=== PATIENT | male | born 1995 | race Caucasian/White ===

== ENCOUNTER 2018-02-15 11:57 | Emergency (ER) | payer BC ==
[2018-02-15] MEDS ORDERED: Ketorolac INJ* 30 MG/ML 1 ML VIAL IV PUSH ONE (12:08)
[2018-02-15] MEDS ORDERED: NS 0.9% 1000 ML* 1,000 ML IV ONE ×2 (12:08→13:46)
[2018-02-15 12:21] LABS: ABS Basophils 0 10^3/ul (0-0.2); ABS Eosinophils 0.1 10^3/ul (0-0.6); ABS Lymphocytes 1.7 10^3/ul (1.0-4.8); ABS Monocytes 1.2 10^3/ul (0-0.8); ABS Nucleated RBC 0 10^3/ul; Hematocrit 45 % (42-52); Hemoglobin 15.6 g/dl (14.0-18.0); Lymphocyte % 12.3 % (25-47); Mean Corpuscular HGB Conc 35 g/dl (31-36); Mean Corpuscular Hemoglobin 31 pg (27-31); Mean Corpuscular Volume 88 fL (80-94); Mean Platelet Volume 8.2 um3 (7.4-10.4); Nucleated Red Blood Cells % 0.1; Platelet Count 197 10^3/ul (150-450); Red Blood Count 5.09 10^6/ul (4.00-5.40); Red Cell Distribution Width 14 % (10.5-15)
[2018-02-15 12:45] LABS: Urine Appearance Clear; Urine Blood 3+ (Negative); Urine Color Colorless; Urine Ketones Negative (Negative); Urine Protein Negative (Negative); Urine Specific Gravity 1.002 (1.010-1.030); Urine Urobilinogen Negative (Negative)
--- NOTE | 2018-02-15 13:07 | RAD ---
CLINICAL HISTORY: L flank pain, hx of stones COMPARISON: None TECHNIQUE: Multiple contiguous axial CT scans were obtained of the abdomen and pelvis, without intravenous contrast enhancement. Coronal and sagittal multiplanar reformations are submitted for review. Oral contrast was not administered. FINDINGS: The study is limited by the lack of intravenous contrast. This limits evaluation of the solid organs and vasculature. LUNG BASES: The lung bases are clear. LIVER: The liver is normal in shape, size, contour, and attenuation. BILE DUCTS: There is no intrahepatic or extrahepatic biliary dilatation. GALLBLADDER: The gallbladder is normal, without pericholecystic inflammatory change. PANCREAS: The pancreas is normal, without mass or ductal dilatation. SPLEEN: Normal in size and appearance. UPPER GI TRACT: Evaluation of the gastrointestinal tract is limited by incomplete gastric distention. The upper GI tract is unremarkable. SMALL BOWEL AND MESENTERY: The small bowel is normal in contour, course, and caliber. There is no obstruction or dilatation. COLON: The colon is normal in contour, course, caliber. There is no pericolonic inflammatory change. ADRENALS: Normal bilaterally. KIDNEYS: There is a 0.7 cm calculus of the left UVJ. There is moderate pelviectasis and hydroureter. BLADDER: As noted above, there is a left UVJ calculus. PELVIC ORGANS: The prostate gland is normal. The seminal vesicles are symmetric. AORTA: The aorta is normal. IVC: Unremarkable LYMPH NODES: There is no lymphadenopathy by size criteria. ABDOMINAL WALL: There is no evidence for abdominal wall hernia. BONES AND SOFT TISSUES: Unremarkable OTHER: None IMPRESSION: 0.7 CM LEFT UVJ STONE WITH MODERATE LEFT-SIDED HYDRONEPHROSIS
[2018-02-15] MEDS ORDERED: Morphine VIAL* 4 MG/ML VIAL (1 ml vial) IV ONE (13:46)
[2018-02-15] MEDS ORDERED: Tamsulosin CAP* 0.4 MG PO ONE (13:49)
--- NOTE | 2018-02-15 15:00 | RAD ---
INDICATION: Left ureteral calculus. COMPARISON: Comparison is made with the prior CT of the abdomen and pelvis from February 15, 2018. TECHNIQUE: Frontal supine films of the abdomen were obtained. FINDINGS: The small bowel and colon appear nondistended. No significant abnormal calcifications are seen. The previously noted left ureterovesical junction calculus is not visualized. IMPRESSION: THE PREVIOUSLY NOTED LEFT URETERAL CALCULUS IS NOT VISUALIZED.
[2018-02-15 16:23] VITALS: BP 131/83
--- NOTE | 2018-02-15 17:28 | ED ---
Esme Morrissey Tenzin, scribed for Marlon Serrato MD on 02/15/18 at 1221 . GI/ HPI - HPI Summary HPI Summary: Pt is a 22 years old male with the hx of kidney stones presenting to the ED complaining of left flank pain since 0400 this morning. Per triage, pt rates the pain at 7/10 in severity. Pt reports that the pain woke him up today. Per triage, pt rates the pain at 7/10 and describes it as sharp and stabbing. Pt denies fever, N/V/D. Pt also notes that he had 2 similar episodes in the past from kidney stone. Pt reports that he is on meds for ADHD. He occasionally smokes and drinks. He is a student at [employer]. - History of Current Complaint Chief Complaint: EDFlankPain Time Seen by Provider: 02/15/18 12:07 Stated Complaint: FLANK PAIN Hx Obtained From: Patient Onset/Duration: Started Hours Ago - 0400 this morning. Current Severity: Moderate Pain Intensity: 7 Location of Pain: Flank Pain Characteristics: Sharp, Other: - Stabbing Associated Signs and Symptoms: Negative: Nausea, Vomiting, Diarrhea Aggravating Factor(s): Nothing Alleviating Factor(s): Nothing - Allergy/Home Medications Allergies/Adverse Reactions: Allergies Allergy/AdvReac Type Severity Reaction Status Date / Time Cephalosporins Allergy Rash Verified 02/15/18 12:01 Home Medications: Home Medications Amphetamine MIXED SALT TAB* [Adderall TAB*] 20 mg PO DAILY 02/15/18 [History Confirmed 02/15/18] PMH/Surg Hx/FS Hx/Imm Hx Endocrine/Hematology History: Denies: Hx Diabetes Cardiovascular History: Denies: Hx Coronary Artery Disease Infectious Disease History: No Infectious Disease History: Denies: Traveled Outside the [place] in Last 30 Days - Family History Known Family History: Negative: Cardiac Disease, Diabetes - Social History Alcohol Use: Occasionally Substance Use Type: Reports: None Smoking Status (MU): Unknown if Ever Smoked Review of Systems Negative: Fever Negative: Vomiting, Diarrhea, Nausea Positive: flank pain All Other Systems Reviewed And Are Negative: Yes Physical Exam - Summary Physical Exam Summary: Appearance: Well appearing, no pain distress Skin: warm, dry, reflects adequate perfusion Head/face: normal Eyes: EOMI, ESTUARDO ENT: normal Neck: supple, non-tender Respiratory: CTA, breath sounds present Cardiovascular: RRR, pulses symmetrical Abdomen: non-tender, soft Bowel Sounds: present Musculoskeletal: normal, strength/ROM intact, no CVA tenderness. Neuro: normal, sensory motor intact, A&Ox3 Triage Information Reviewed: Yes Vital Signs On Initial Exam: Initial Vitals Temp Pulse Resp BP Pulse Ox 98.5 F 67 18 145/96 100 02/15/18 11:59 02/15/18 11:59 02/15/18 11:59 02/15/18 11:59 02/15/18 11:59 Vital Signs Reviewed: Yes Diagnostics - Vital Signs Vital Signs Temp Pulse Resp BP Pulse Ox 02/15/18 11:59 98.5 F 67 18 145/96 100 - Laboratory Lab Results: Lab Results 02/15/18 02/15/18 02/15/18 Range/Units 12:15 12:15 12:15 WBC 14.0 H (3.5-10.8) 10^3/ul RBC 5.09 (4.00-5.40) 10^6/ul Hgb 15.6 (14.0-18.0) g/dl Hct 45 (42-52) % MCV 88 (80-94) fL MCH 31 (27-31) pg MCHC 35 (31-36) g/dl RDW 14 (10.5-15) % Plt Count 197 (150-450) 10^3/ul MPV 8.2 (7.4-10.4) um3 Neut % (Auto) 78.4 (38-83) % Lymph % (Auto) 12.3 L (25-47) % [place] % (Auto) 8.2 H (0-7) % Eos % (Auto) 1.0 (0-6) % Baso % (Auto) 0.1 (0-2) % Absolute Neuts (auto) 11.0 H (1.5-7.7) 10^3/ul Absolute Lymphs (auto) 1.7 (1.0-4.8) 10^3/ul Absolute Monos (auto) 1.2 H (0-0.8) 10^3/ul Absolute Eos (auto) 0.1 (0-0.6) 10^3/ul Absolute Basos (auto) 0 (0-0.2) 10^3/ul Absolute Nucleated RBC 0 10^3/ul Nucleated RBC % 0.1 Sodium 134 L (135-145) mmol/L Potassium 3.5 (3.5-5.0) mmol/L Chloride 100 L (101-111) mmol/L Carbon Dioxide 23 (22-32) mmol/L Anion Gap 11 (2-11) mmol/L BUN 13 (6-24) mg/dL Creatinine 1.29 H (0.67-1.17) mg/dL Est GFR ( Amer) 85.9 (>60) Est GFR (Non-Af Amer) 71.0 (>60) BUN/Creatinine Ratio 10.1 (8-20) Glucose 93 (70-100) mg/dL Lactic Acid 1.1 (0.5-2.0) mmol/L Calcium 9.8 (8.6-10.3) mg/dL Total Bilirubin 1.80 H (0.2-1.0) mg/dL AST 20 (13-39) U/L ALT 13 (7-52) U/L Alkaline Phosphatase 54 (34-104) U/L C-Reactive Protein < 1.00 (<8.01) mg/L Total Protein 6.9 (6.4-8.9) g/dL Albumin 4.3 (3.2-5.2) g/dL Globulin 2.6 (2-4) g/dL Albumin/Globulin Ratio 1.7 (1-3) Lipase 12 (11.0-82.0) U/L Urine Color Urine Appearance Urine pH (5-9) Ur Specific [place] (1.010-1.030) Urine Protein (Negative) Urine Ketones (Negative) Urine Blood (Negative) Urine Nitrate (Negative) Urine Bilirubin (Negative) Urine Urobilinogen (Negative) Ur Leukocyte Esterase (Negative) Urine WBC (Auto) (Absent) Urine RBC (Auto) (Absent) Urine Bacteria (Absent) Urine Glucose (Negative) 02/15/18 Range/Units 12:29 WBC (3.5-10.8) 10^3/ul RBC (4.00-5.40) 10^6/ul Hgb (14.0-18.0) g/dl Hct (42-52) % MCV (80-94) fL MCH (27-31) pg MCHC (31-36) g/dl RDW (10.5-15) % Plt Count (150-450) 10^3/ul MPV (7.4-10.4) um3 Neut % (Auto) (38-83) % Lymph % (Auto) (25-47) % [place] % (Auto) (0-7) % Eos % (Auto) (0-6) % Baso % (Auto) (0-2) % Absolute Neuts (auto) (1.5-7.7) 10^3/ul Absolute Lymphs (auto) (1.0-4.8) 10^3/ul Absolute Monos (auto) (0-0.8) 10^3/ul Absolute Eos (auto) (0-0.6) 10^3/ul Absolute Basos (auto) (0-0.2) 10^3/ul Absolute Nucleated RBC 10^3/ul Nucleated RBC % Sodium (135-145) mmol/L Potassium (3.5-5.0) mmol/L Chloride (101-111) mmol/L Carbon Dioxide (22-32) mmol/L Anion Gap (2-11) mmol/L BUN (6-24) mg/dL Creatinine (0.67-1.17) mg/dL Est GFR ( Amer) (>60) Est GFR (Non-Af Amer) (>60) BUN/Creatinine Ratio (8-20) Glucose (70-100) mg/dL Lactic Acid (0.5-2.0) mmol/L Calcium (8.6-10.3) mg/dL Total Bilirubin (0.2-1.0) mg/dL AST (13-39) U/L ALT (7-52) U/L Alkaline Phosphatase (34-104) U/L C-Reactive Protein (<8.01) mg/L Total Protein (6.4-8.9) g/dL Albumin (3.2-5.2) g/dL Globulin (2-4) g/dL Albumin/Globulin Ratio (1-3) Lipase (11.0-82.0) U/L Urine Color Colorless Urine Appearance Clear Urine pH 7.0 (5-9) Ur Specific [place] 1.002 L (1.010-1.030) Urine Protein Negative (Negative) Urine Ketones Negative (Negative) Urine Blood 3+ A (Negative) Urine Nitrate Negative (Negative) Urine Bilirubin Negative (Negative) Urine Urobilinogen Negative (Negative) Ur Leukocyte Esterase Negative (Negative) Urine WBC (Auto) Absent (Absent) Urine RBC (Auto) 1+(3-5/hpf) A (Absent) Urine Bacteria Absent (Absent) Urine Glucose Negative (Negative) Result Diagrams: 02/15/18 12:15 02/15/18 12:15 Lab Statement: Any lab studies that have been ordered have been reviewed, and results considered in the medical decision making process. - Radiology Abdomen X ray Radiology Interpretation Completed By: Radiologist - IMPRESSION: THE PREVIOUSLY NOTED LEFT URETERAL CALCULUS IS NOT VISUALIZED. - CT Abd/Pelvis w/o Contrast CT Interpretation Completed By: Radiologist - IMPRESSION: 0.7 CM LEFT UVJ STONE WITH MODERATE LEFT-SIDED HYDRONEPHROSIS Re-Evaluation - Re-Evaluation First Eval Re-Evaluation Time: 15:13 Change: Improved Comment: Pt notes the pain is definitely better now. Pt notes that he is comfortable. Dr. Serrato spoke to pt's mother over the phone. There is no Urologist on the call at [place]. Pt is advised to see a Urologist tomorrow morning. Second Eval Re-Evaluation Time: 16:06 Change: Improved - Pt notes that he is not in pain. GIGU Course/Dx - Course Course Of Treatment: Patient with initial improvement with hydration, Toradol. He had some residual pain so morphine and additional fluids were given along with a dose of Flomax. Patient's pain seemed to improve despite the large stone seen on CT. A KUB was obtained and did not show any evidence of stone. His pain was gone then -- with possibility of passage of the stone. Discussed the case with the urologist who agrees that likely his stone has passed. He'll follow him up closely as needed in the office. - Diagnoses Provider Diagnoses: Kidney stones, Calcium ureterolithiasis, Renal colic on left side - Physician Notifications Discussed Care Of Patient With: Pepito Radford Time Discussed With Above Provider: 16:07 - Consulted with . He thinks that the stone has passed. Discharge - Sign-Out/Discharge Documenting (check all that apply): Discharge/Admit/Transfer - Discharge - Discharge Plan Condition: Stable Disposition: HOME Prescriptions: Naproxen [Naproxen 500 mg tab] 500 mg PO BID PRN #10 tablet. PRN Reason: Pain Ondansetron HCl [Zofran] 4 mg PO TID PRN #12 tablet PRN Reason: Nausea Patient Education Materials: Kidney Stones (ED) Referrals: Pepito Radford MD [Medical Doctor] - Additional Instructions: Follow up with Urologist tomorrow. Calcium oxalate diet Return to the emergency department for any new or worsening symptoms. - Billing Disposition and Condition Condition: STABLE Disposition: Home The documentation as recorded by the Esme rojas Tenzin accurately reflects the service I personally performed and the decisions made by , Marlon Serrato MD.
== END 2018-02-15 16:21 | disposition home or self-care (01) ==
LOC: ED 11:57
DX: N20.0 Calculus of kidney (principal); N20.1 Calculus of ureter; Z87.442 Personal history of urinary calculi
CPT/HCPCS: 36415; 74018; 74176; 80053; 81003; 81015; 83605; 83690; 85025; 86140; 96374; 96375; 99283; J1885; J2270